=== PATIENT | male | born 1945 | race Caucasian/White ===

== ENCOUNTER 2021-05-17 09:22 | Day surgery (SDC) | payer MEDICARE ==
[~2021-05-17] VITALS: Ht 182.9 cm; Wt 94.2 kg
[~2021-05-17 09:22] MED LIST: 0.9%NACL 1000ML 1,000 ML IV ONE; AMLO-257 PO; BENA10TA77 PO; BETA1TAB18 PO; BUDE10.2 IH
[2021-05-17 09:55] VITALS: BP 158/83
[2021-05-17] MEDS ORDERED: PROPOFOL 10 MG/ML 20ML VIAL IV ONE (11:22)
[2021-05-17] MEDS ORDERED: SIMETHICONE 40 MG/0.6 ML ML ONE (11:48)
[2021-05-17 11:49] VITALS: BP 143/77
[2021-05-17 12:05] VITALS: BP 160/86
[2021-05-17 12:20] VITALS: BP 156/74
== END 2021-05-17 12:25 | disposition home or self-care (01) ==
LOC: ENDO 09:22 → DAH 09:22 → ENDO 12:25
PROVIDERS: ATTEND Internal Medicine Gastroenterology
DX: Z12.11 Encounter for screening for malignant neoplasm of colon (principal); Z20.822 Contact with and (suspected) exposure to COVID-19; K63.5 Polyp of colon; K64.8 Other hemorrhoids; K57.30 Diverticulosis of large intestine without perforation or abscess without bleeding; J43.9 Emphysema, unspecified; I10 Essential (primary) hypertension; E11.9 Type 2 diabetes mellitus without complications; K21.9 Gastro-esophageal reflux disease without esophagitis; Z90.89 Acquired absence of other organs; Z98.890 Other specified postprocedural states; Z87.891 Personal history of nicotine dependence; Z79.899 Other long term (current) drug therapy
CPT/HCPCS: 45385; 87635; 93005; A4215 ×2; A4221; A4222; A4223; A4606; A4620; A4657; A4663; C9803; J2704; J7030